=== PATIENT | female | born 1950 | race Caucasian/White ===

== ENCOUNTER 2024-02-22 04:38 | Emergency (ER) | payer MEDICARE, BC ==
[~2024-02-22] VITALS: Ht 157.5 cm; Wt 54.4 kg
[~2024-02-22 04:38] MED LIST: ALBU8.5H8 IH; CEFU500T66 PO; FLUT1DIS28 IH
[2024-02-22] MEDS ORDERED: AMLO2.5T4 (04:47)
[2024-02-22] MEDS ORDERED: ALBU8.5H8 IH (04:51)
[2024-02-22] MEDS ORDERED: PRED50TA PO (04:51)
[2024-02-22] MEDS ORDERED: FLUT1DIS28 IH (04:51)
[2024-02-22] MEDS ORDERED: IPRATROPIUM BROMIDE 0.5 MG/2.5 ML NEBU ONE (04:52)
[2024-02-22] MEDS ORDERED: ALBUTEROL SULFATE 2.5 MG/3 ML NEBU ONE (04:52)
[2024-02-22 04:55] VITALS: O2SAT 97
[2024-02-22] MEDS ORDERED: predniSONE 50 MG TABLET ONE (05:04)
[2024-02-22] MEDS: predniSONE 50 MG TABLET PO ONE (05:05)
[2024-02-22 05:07] VITALS: O2SAT 98
[2024-02-22] MEDS: ALBUTEROL SULFATE 2.5 MG/3 ML NEBU NEB ONE (05:09)
[2024-02-22] MEDS: IPRATROPIUM BROMIDE 0.5 MG/2.5 ML NEBU NEB ONE (05:09)
[2024-02-22 05:10] VITALS: O2SAT 99
[2024-02-22 05:13] LABS: BASOPHILS # (AUTO) 0.1 K/UL (0.0-0.2); EOSINOPHILS # (AUTO) 0.4 K/uL (0.0-0.7); EOSINOPHILS % (AUTO) 6.4 % (0.0-7.0); HEMATOCRIT 32.9 % (31.2-41.9); HEMOGLOBIN 11.5 g/dL (10.9-14.3); LYMPHOCYTES # (AUTO) 1.6 K/uL (0.8-4.8); LYMPHOCYTES % (AUTO) 23.5 % (20.5-51.5); MEAN CORPUSCULAR HEMOGLOBIN 31.9 uug (24.7-32.8); MEAN CORPUSCULAR HGB CONC 35 g/dL (32.3-35.6); MEAN CORPUSCULAR VOLUME 90.7 fL (75.5-95.3); MONOCYTES # (AUTO) 1.2 K/uL (0.1-1.30); MONOCYTES % (AUTO) 18.1 % (0.0-11.0); NEUTROPHILS # (AUTO) 3.5 K/uL (1.8-8.9); PLATELET COUNT (AUTO) 197 K/uL (179-408); RED BLOOD CELL COUNT(AUTO) 3.63 MIL/uL (3.63-4.92); RED CELL DISTRIBUTION WIDTH 14.1 % (12.3-17.7); WHITE BLOOD COUNT (AUTO) 6.8 K/uL (3.8-11.8)
[2024-02-22 05:27] LABS: ALANINE AMINOTRANSFERASE 26 U/L (14-59); ALBUMIN 3.5 g/dL (3.4-5.0); ALKALINE PHOSPHATASE 68 U/L (50-136); ASPARTATE AMINOTRANSFERASE 14 U/L (15-37); BILIRUBIN,TOTAL 0.2 mg/dL (0.2-1.0); CALCIUM 8.6 mg/dL (8.5-10.1); CARBON DIOXIDE 27 mmol/L (21-32); CHLORIDE 105 mmol/L (98-107); CREATININE 0.9 mg/dL (0.6-1.3); GLUCOSE 109 mg/dL (74-106); POTASSIUM 3.6 mmol/L (3.5-5.1); SODIUM SERUM 141 mmol/L (136-145); TOTAL PROTEIN, SERUM 7.1 g/dL (6.4-8.2); UREA NITROGEN, BLOOD 10 mg/dL (7-18)
[2024-02-22 05:32] LABS: C-REACTIVE PROTEIN 2.58 mg/dL (0.00-0.30)
[2024-02-22 06:30] LABS: EOSINOPHILS % (MANUAL) 5 % (0-8); LYMPHOCYTES % (MANUAL) 21 % (20-40); MONOCYTES % (MANUAL) 17 % (2-10); NEUTROPHILS % (MANUAL) 57 % (42-75)
== END 2024-02-22 05:55 | disposition home or self-care (01) ==
LOC: ER 04:43
DX: J45.909 Unspecified asthma, uncomplicated (principal); M81.0 Age-related osteoporosis without current pathological fracture; Z79.51 Long term (current) use of inhaled steroids; Z79.52 Long term (current) use of systemic steroids; Z88.5 Allergy status to narcotic agent; Z88.7 Allergy status to serum and vaccine; Z20.822 Contact with and (suspected) exposure to COVID-19
CPT/HCPCS: 99285; 71045; 87426; 87804 ×2; 80053; 85025; 84145; 86140; 36415; 94640; 93005; 85007; J7512; 70030-TC; A4606; A4663; J3590